=== PATIENT | male | born 1975 | race Caucasian/White ===

== ENCOUNTER 2018-11-22 22:49 | Emergency (ER) | payer BC ==
[2015-04-26 16:10] VITALS: BP 128/81
[2018-11-22] MEDS ORDERED: methylPREDNISolone ACETATE 80 MG/ML VIAL IM ONE (23:10)
[2018-11-22] MEDS ORDERED: HYDROcodone /APAP 5/325 1 EACH TABLET ONE (23:10)
[2018-11-22] MEDS ORDERED: DOXYCYCLINE 100 MG CAPSULE PO ONE (23:10)
[2018-12-03 08:39] LABS: BASOPHILS % 0.7 % (0.0-1.5); NEUTROPHILS # 7.5 # k/uL (1.4-7.7); eGFR (Non-African) > 60
--- NOTE | 2019-01-10 18:33 | Diagnostic Imaging Report ---
JORDAN FITZGERALD [facility] [address] [facility] [address], [place]. [address] Report Submission Date: Nov 22, 2018 11:37:19 PM CDT Patient Study Name: PEGGY HALEY Date: Nov 22, 2018 11:10:38 PM CDT Modality Type: DX Gender: M Description: KNEE 3 VIEWS : 77 Institution: [facility] Physician: JORDAN FITZGERALD Three views of the right knee Clinical history: Mid anterior knee pain. Findings: Examination right knee in AP, lateral and oblique views fails to demonstrate evidence of fracture or dislocation. There is mild prepatellar soft tissue swelling. There is no evident joint effusion. Impression: 1. Prepatellar soft tissue swelling. Electronically signed on Nov 22, 2018 11:37:19 PM CDT by: Jenaro MCNAIR
== END 2018-11-22 23:52 ==
LOC: ED 22:49
DX: M25.561 Pain in right knee (principal)
CPT/HCPCS: 73562; 80053; 85025; 86618; 86666; 86757; J1040; A9270-GY; S1016